=== PATIENT | female | born 1945 | race Caucasian/White ===

== ENCOUNTER 2022-05-29 18:05 | Emergency (ER) | payer OTHER ==
[~2022-05-29 18:05] MED LIST: B COMPLEX1 EACH PO; CALCIUM 600 +1 EACH PO; CIPRO500 M1 PO; IMITREX100 MG PO; LEXAPRO10 MG PO; METRONIDAZOLE500 MG PO; NORCO 5-325 TA1 EACH PO; NORVASC2.5 MG PO; PRAVASTATIN SOD10 MG PO; ZOFRAN8 MG PO; ZYRTEC10 MG PO
[2022-05-29 20:34] LABS: BASOPHIL 0.1 % (0-2); EOSINOPHIL 0.7 % (0-7); HCT 40.8 % (37.0-47.0); HGB 13.2 g/dl (12.5-16.0); LYMPHOCYTE 29.7 % (15-48); MCH 30.7 pg (25.0-31.0); MCHC 32.4 g/dL (32.0-36.0); MCV 94.9 fL (78.0-100.0); MONOCYTE 9.4 % (0-12); MPV 9.9 fL (6.0-9.5); NEUTROPHIL 59.7 % (41-80); NRBC 0; PLT 191 K/uL (150-400); RDW 13.2 % (11.5-14.0); WBC 7.1 K/uL (4.0-10.5)
[2022-05-29 21:04] LABS: ALBUMIN 3.6 g/dL (3.4-5.0); BILIRUBIN - TOTAL 0.4 mg/dL (0.2-1.0); BUN/CREAT RATIO (CALC) 23.2 RATIO; CREATININE 0.99 mg/dL (0.51-0.95); GLOBULIN (CALCULATION) 3.5 g/dL; POTASSIUM 3.8 mmol/L (3.5-5.1); TOTAL PROTEIN 7.1 g/dL (6.4-8.2)
[2022-05-29 21:42] LABS: BILIRUBIN NEGATIVE (NEGATIVE); BLOOD TRACE-INTACT Ery/uL (NEGATIVE); CLARITY CLEAR (CLEAR); COLOR YELLOW (YELLOW); GLUCOSE (U) NORMAL (NORMAL); LEUKOCYTES NEGATIVE Leu/uL (NEGATIVE); NITRITE NEGATIVE (NEGATIVE); PROTEIN TRACE (LOW) mg/dL (NEGATIVE); SPECIFIC GRAVITY >=1.030 (1.001-1.030); UROBILINOGEN 0.2 mg/dL (0.2-1.0)
[2022-05-29 21:48] LABS: BACTERIA TRACE; URINARY WBC RARE
[2022-05-29 21:49] LABS: SQUAMOUS EPITHELIAL CELLS RARE; TRANSITIONAL EPITHELIAL CELLS RARE
[2022-05-29] MEDS ORDERED: BENTYL10 MG PO (22:44)
== END 2022-05-29 23:05 | disposition home or self-care (01) ==
LOC: FER 18:05
PROVIDERS: Internal Medicine; Nurse Practitioner Family
DX: K57.32 Diverticulitis of large intestine without perforation or abscess without bleeding (principal)
CPT/HCPCS: 36415; 80053; 81001; 83690; 84145; 85025